=== PATIENT | male | born 1990 | race Two or more races ===

== ENCOUNTER 2018-11-15 19:10 | Emergency (ER) | payer OTHER ==
[~2018-11-15] VITALS: Ht 185.4 cm; Wt 107.0 kg
[2018-11-15 19:24] VITALS: Ht 185.4 cm; Wt 107.0 kg
[2018-11-15 21:14] VITALS: BP 128/81
== END 2018-11-15 21:14 | disposition home or self-care (01) ==
LOC: ED 19:10
DX: S63.502A Unspecified sprain of left wrist, initial encounter (principal); V89.2XXA Person injured in unspecified motor-vehicle accident, traffic, initial encounter; Y93.I9 Activity, other involving external motion; Y92.413 State road as the place of occurrence of the external cause; Y99.8 Other external cause status